=== PATIENT | male | born 1995 | race Native Hawaiian/Other Pacific Islander ===

== ENCOUNTER 2022-11-05 04:07 | Emergency (ER) | payer OTHER ==
[~2022-11-05] VITALS: Ht 185.4 cm; Wt 111.3 kg
[2022-11-05 04:14] VITALS: BP 154/79
[2022-11-05] MEDS ORDERED: metFORMIN 500mg tablet PO ONE (04:40)
[2022-11-05] MEDS ORDERED: insulin regular, human 10 units/0.1 ml syringe SQ ONE (04:40)
[2022-11-05] MEDS ORDERED: lisinopril 10 MG tablet PO ONE (04:40)
[2022-11-05] MEDS ORDERED: lisinopril 2.5mg tablet PO ONE (04:45)
[2022-11-05] MEDS ORDERED: LISI5TAB22 PO (04:51)
[2022-11-05] MEDS ORDERED: METF-436 PO (04:51)
== END 2022-11-05 05:14 ==
LOC: ER 04:07
DX: Z02.89 Encounter for other administrative examinations (principal); Z72.89 Other problems related to lifestyle; E11.65 Type 2 diabetes mellitus with hyperglycemia; F17.200 Nicotine dependence, unspecified, uncomplicated; I10 Essential (primary) hypertension
CPT/HCPCS: 82948; 96372; 99283; J1815